=== PATIENT | male | born 1955 | race Caucasian/White ===

== ENCOUNTER 2016-12-31 07:02 | Emergency (ER) | payer OTHER ==
[2016-12-31 07:10] VITALS: BP 157/78; PULSE 64; RESP 18; TEMP 98; O2SAT 94
--- NOTE | 2016-12-31 07:18 | UCPHY ---
H & P Time Seen by Provider: 12/31/16 07:10 Patient Type: New HPI/ROS: CHIEF COMPLAINT: Right foot pain HISTORY OF PRESENT ILLNESS: Patient is a 7-year-old male who presents emergency department with 2 days of right foot pain. He describes pain on the bottom arch of his foot. It is worse with ambulation. He denies any redness. No numbness or tingling. Patient does not recall an injury. He has had no strenuous exercise recently. He has not changed shoes. He denies fevers or chills. No previous episodes of gout. REVIEW OF SYSTEMS: My complete review of systems is negative except as mentioned in the HPI. Social History: Patient drinks alcohol Smoking Status: Current every day smoker Physical Exam: Vitals noted General Appearance: Alert and no distress. Head: Pupils equal. Normal. Respiratory: No respiratory distress. Cardiac: regular rate and rhythm. Extremities: patient's right lower extremity appears normal. There is no warmth or redness. The patient has mild tenderness palpation over his right arch. There is no palpable mass. There is not a seem to be any bony tenderness to palpation. Of note, the patient's great toe, metatarsals and ankles are nontender to palpation with no redness. Skin: No rashes or lesions. Neuro: Alert. Normal mood and affect. Constitutional: Initial Vital Signs Temperature (C) 36.6 C 12/31/16 07:08 Heart Rate 64 12/31/16 07:08 Respiratory Rate 18 12/31/16 07:08 Blood Pressure 157/78 H 12/31/16 07:08 O2 Sat (%) 94 12/31/16 07:08 O2 Delivery Mode Room Air Allergies/Adverse Reactions: No Known Allergies Allergy (Unverified 12/31/16 07:08) Home Medications: Medication Instructions Recorded Ibuprofen 600 mg PO TID #11 tablet 12/31/16 Lipitor 12/31/16 Statin 12/31/16 Medical Decision Making ED Course/Re-evaluation: In urgent care discussed possible etiologies with the patient. I answered all his questions. X-ray of his right foot was ordered. Right foot x-ray: No acute disease noted. Discussed the result with the patient. I answered all his questions. I discussed the potential diagnosis. This included plantar fasciitis and early gout. I do not feel the patient has a fracture or dislocation. Patient will be prescribed anti-inflammatories. He is given warnings prior to leaving. He will return with worsening symptoms. Differential Diagnosis: My differential includes but is not limited to plantar fasciitis, gout, sprain, fracture, dislocation Departure - Departure Disposition: Home, Routine, Self-Care Clinical Impression: Foot pain, right, Plantar fasciitis of right foot Condition: Good Instructions: Plantar Fasciitis (ED), Gout (ED) Additional Instructions: Return with increasing redness, warmth, fever, chills, worsening pain or any other concerns. Referrals: Migue Das MD [Primary Care Provider] - 2-3 days, call for appt. Prescriptions: Ibuprofen 600 mg PO TID #11 tablet - PQRS PQRS Measurement: 134: Depression screening and followup, PRIME MD-PHQ2 (12 years and older) Over the last 2 weeks, how often have you been bothered by any of the following problems? 1. Feeling down, depressed, or hopeless? 2. Little interest or pleasure in doing things? Patient answered no to both 1 and 2 130: Documentation of medications. Reviewed all patient medications, doses, route and frequency. 226: Do you smoke? Yes, counseled to stop. 47: 65 and older: Advanced care planning. Patient refused. 51: 18 years old and older with diagnosis of COPD, spirometry performance. Spirometry not performed; equipment not available. Patient has no history of COPD 52: 18 years old and older with COPD and symptoms of COPD or FEV1<60% predicted prescribed a B Agonist. Spirometry not performed; equipment not available.
== END 2016-12-31 07:57 | disposition home or self-care (01) ==
LOC: CED 07:02
DX: M72.2 Plantar fascial fibromatosis (principal); Z72.0 Tobacco use
CPT/HCPCS: 73630-PO; 99203-PO; G0463-PO